=== PATIENT | female | born 1950 | race Caucasian/White ===

== ENCOUNTER → 2017-06-29 | Outpatient (CLI) | payer OTHER, MEDICARE ==
[~2017-06-29] MED LIST: ACT35 PO; AMTUNK; PRAV20TA PO
--- NOTE | 2017-06-30 08:10 | MAMMOGRAPHY REPORT ---
BILATERAL DIGITAL SCREENING MAMMOGRAM TOMOSYNTHESIS WITH CAD: 06/29/2017 CLINICAL HISTORY: Routine screening. Patient has no complaints. TECHNIQUE: Breast tomosynthesis in addition to standard 2D mammography was performed. Current study was also evaluated with a Computer Aided Detection (CAD) system. COMPARISON: Comparison is made to exams dated: 06/26/2016 mammogram, 06/07/2015 mammogram, 06/05/2014 m ammogram, 05/17/2013 mammogram, 04/04/2012 mammogram, and 04/01/2011 mammogram - [facility] nter. BREAST COMPOSITION: There are scattered areas of fibroglandular density in both breasts. FINDINGS: There is stable asymmetry in the superior right breast. No new suspicious mass, architectu ral distortion or cluster of microcalcifications is seen. IMPRESSION: ACR BI-RADS CATEGORY 1: NEGATIVE There is no mammographic evidence of malignancy. A 1 year screening mammogram is recommended. The pa tient will receive written notification of the results. Approximately 10% of breast cancers are not detected with mammography. A negative mammographic report should not delay biopsy if a clinically suggestive mass is present. Anaid Smith M.D. ay/:06/29/2017 15:52:07 [employer] Consultant: Liz AYALA(R)(M), [facility] letter sent: Normal 1/2 BI-RADS Code: ACR BI-RADS Category 1: Negative
== END | disposition home or self-care (01) ==
LOC: C.MAMM 09:56
PROVIDERS: ATTEND Family Medicine
DX: Z12.31 Encounter for screening mammogram for malignant neoplasm of breast (principal)

== ENCOUNTER 2020-07-12 08:42 | Inpatient (IN) ==
[2020-06-11 10:40] LABS: Basophils # (auto) 0.02 K/uL (0-0.2); Basophils % (auto) 0.4 %; Eosinophils # (auto) 0.07 K/uL (0-0.5); Eosinophils % (auto) 1.2 %; Hematocrit (blood only) 41.7 % (37-47); Hemoglobin 14.1 g/dL (12.0-16.0); Immature Granulocytes # (auto) 0.01 K/uL (0.00-0.02); Immature Granulocytes % (auto) 0.2 %; Lymphocytes % (auto) 17.6 %; Mean Corpuscular Hgb Conc 33.8 g/dL (32-36); Mean Corpuscular Volume 91.6 fL (80-100); Mean Platelet Volume 10.4 fL (7.4-10.4); Monocytes # (auto) 0.43 K/uL (0.11-0.59); Monocytes % (auto) 7.6 %; Neutrophils # (auto) 4.15 K/uL (1.4-6.5); Platelet Count 296 K/uL (130-400); RDW Coefficient of Variation 13.1 % (11.5-14.5); RDW Standard Deviation 43.7 fL (36.4-46.3); Red Blood Count 4.55 M/uL (4.2-5.4); White Blood Count 5.68 K/uL (4.8-10.8)
[2020-06-11 10:49] LABS: Partial Thromboplastin Time 27.5 Seconds (21.0-31.0); Prothrombin Time 10.6 Seconds (9.0-12.0)
[2020-06-11 11:05] LABS: Blood Urea Nitrogen 13 mg/dl (7-18); Calcium 9.5 mg/dl (8.5-10.1); Carbon Dioxide 26 mmol/L (21-32); Chloride 109 mmol/L (98-107); Est GFR (African American) 103.7; Est GFR (Non-African American) 89.4; Glucose 97 mg/dl (70-99); Sodium 141 mmol/L (136-145)
--- NOTE | 2020-07-03 10:11 | Anesthesiology Consultation ---
Date of Service July 03, 2020 Assessment & Plan (1) Encounter for pre-operative examination: Chart Review Chart Review: Acceptable Risk for Surgery (pending preop Covid testing results ) and Patient NOT seen in Pre Admission Testing Per nursing assessment 07/03/2020, patient denies any recent travel. No known Covid positive contacts or Covid related symptoms. Scheduled for preop Covid testing 07/08/20. History Surgery Operation Date: 07/12/20 07:00 Proposed Procedures p Left Total Shoulder Arthroplasty - Robert Forrester DO Height/Weight Height: 5 ft Weight: 53.524 kg Allergies Allergy/AdvReac Type Severity Reaction Status Date / Time cortisone Allergy Mild ONLY 1 Verified 07/03/20 09:07 TIME IN HX, RASH & FLUSHED - SEE NOTES BELOW Medications Home Medications Medication Instructions Recorded Confirmed Last Taken celecoxib 200 mg capsule 100 mg PO BID 08/29/19 07/03/20 Unknown Allergy Pill 1 dose PO UD PRN 12/04/19 07/03/20 Unknown calcium carbonate-vitamin D3 1 tab PO DAILY 12/04/19 07/03/20 Unknown [Calcium 500 + D] multivitamin 1 cap PO DAILY 12/04/19 07/03/20 Unknown omeprazole 20 mg PO UD PRN 12/04/19 07/03/20 Unknown rosuvastatin 10 mg PO QPM 12/04/19 07/03/20 Unknown Past Medical History Medical History Degenerative disc disease NECK, MILD LIMITED ROM Disease FUCHS DISEASE Hiatal hernia SMALL, DX YRS AGO, INFREQUENT FLARE UP, NO CURRENT PROBLEM High cholesterol PONV (postoperative nausea and vomiting) Past Surgical History Surgical History History of arthroscopy of left knee History of colonoscopy History of gynecologic surgery MULTIPLE FOR ENDOMETRIOSIS (AGE 21'S) History of lumpectomy of right breast BENIGN History of urologic surgery BLADDER SLING, OCT 2019 Social History Smoking Status: Never smoker Do You Dip or Chew Tobacco: No Hx Alcohol Use: No Hx Substance Use: No substance use type: does not use Testing Laboratory Results 06/11/20 09:10 06/11/20 09:10 PT 10.6 Seconds (9.0-12.0) 06/11/20 09:10 INR 1.0 (0.9-1.1) 06/11/20 09:10 APTT 27.5 Seconds (21.0-31.0) 06/11/20 09:10 Blood Type O Positive 06/11/20 09:10 Antibody Screen NEGATIVE 06/11/20 09:10 Electrocardiogram Date: 12/11/19 Findings: + NSR @ (70) and + no change from (December 25, 2015) Chest X-Ray Date: 12/11/19 Findings: + NAD No acute cardiopulmonary abnormality. 8 mm nodular focus overlying the posterior medial aspect of the right sixth rib is likely secondary to summation density. A pulmonary nodule could appear similarly. (PCP sent copy of CXR to follow up on in December 2019) Stress Test Date: 08/09/18 Type: exercise (ECHO ) Resting EF: 55-60% Resting LV Function: normal Resting RWMA: + none Valvular Disease: no significant valvular disease Nonischemic exercise stress ECHO. MPHR= 100%. 10.1 METS achieved. No arrhythmias. Normal baseline EKG. Normal HR and BP response to exercise. Resting ECHO- mild cLVH. Grade I diastolic dysfunction.
--- NOTE | 2020-07-10 20:30 | History & Physical Report ---
Date of Service July 10, 2020 Assessment & Plan (1) Osteoarthritis, shoulder: We will proceed with a left total shoulder arthroplasty. Postoperatively she will be placed in a sling and kept overnight in the hospital for postoperative medical management. She plans to use [facility] upon discharge. Present on Admission?: Yes History of Present Illness Chief Complaint: Primary osteoarthritis of the left shoulder Primary Care Provider: Maggy Acevedo DO Juany is a pleasant 69-year-old female who is been dealing with chronic increasing left shoulder pain. X-rays and clinical examination have been diagnostic for advanced osteoarthritis of the left shoulder. After failing conservative treatment, she has elected to proceed with a left total shoulder arthroplasty. Allergies Allergy/AdvReac Type Severity Reaction Status Date / Time cortisone Allergy Mild ONLY 1 Verified 07/03/20 09:07 TIME IN HX, RASH & FLUSHED - SEE NOTES BELOW Home Medications Home Medications Medication Instructions Recorded Confirmed Type celecoxib 200 mg capsule 100 mg PO BID 08/29/19 07/03/20 History Allergy Pill 1 dose PO UD PRN 12/04/19 07/03/20 History calcium carbonate-vitamin D3 1 tab PO DAILY 12/04/19 07/03/20 History [Calcium 500 + D] multivitamin 1 cap PO DAILY 12/04/19 07/03/20 History omeprazole 20 mg PO UD PRN 12/04/19 07/03/20 History rosuvastatin 10 mg PO QPM 12/04/19 07/03/20 History Past Med/Surg History Medical History Degenerative disc disease NECK, MILD LIMITED ROM Disease FUCHS DISEASE Hiatal hernia SMALL, DX YRS AGO, INFREQUENT FLARE UP, NO CURRENT PROBLEM High cholesterol Surgical History History of arthroscopy of left knee History of colonoscopy History of gynecologic surgery MULTIPLE FOR ENDOMETRIOSIS (AGE 21'S) History of lumpectomy of right breast BENIGN History of urologic surgery BLADDER SLING, OCT 2019 PONV (postoperative nausea and vomiting) Social History Smoking Status: Never smoker Second Hand Exposure: No; Hx Alcohol Use: No Hx Substance Use: No Preferred Language: Kyrgyz Communication Ability: Effective Director Of Scientific Research Required: No Beliefs That Will Affect Care: None Current Living Situation: Spouse Feels Safe at Home: Yes Assistive Devices: Glasses Review of Systems Review of Systems: All systems reviewed & are unremarkable except as noted in HPI & below Physical Exam Constitutional: WD/WN, vitals as above Eyes: PERRL, conjunctivae normal, anicteric sclerae ENMT: external ear and nose normal, oropharynx normal Neck: trachea midline, no thyromegaly Respiratory: normal respiratory effort Cardiovascular: RRR, no murmur, no edema Gastrointestinal (Abdomen): normal bowel sounds, soft, nontender, no hepatosplenomegaly Musculoskeletal: Physical examination of the left shoulder reveals decreased range of motion and crepitis throughout. There is good strength with full can testing and external rotation. There is tenderness palpation along the anterior glenohumeral joint line. The right upper extremity is neurovascularly intact. Psychiatric: A+Ox3, euthymic affect Results & Data Results & Data ([facility]) Diagnostic Findings Radiographs of the left shoulder show osteoarthritis of the glenohumeral joint. There is joint space narrowing, osteophyte formation, and [id number] articulation. PG Care Time/CCT Total # of Minutes Spent Total Time Spent with Patient: Total time spent is greater than 50% in coordination of care (as documented) at patient's floor/unit and/or counseling patient: Coding Level of Care Code None Diagnoses Osteoarthritis, shoulder M19.019
[~2020-07-12 08:42] MED LIST changes: +ACETAMINOPHEN 500 MG TAB PO SCH; -ACT35 PO; -AMTUNK; +BUPIVACAINE 0.5 % 5 MG/1 ML PF 10ML VIAL ONE; +CEFAZOLIN 1000MG 1,000 MG/7.5 ML SYR IV SCH; +FAMOTIDINE 20 MG TAB PO SCH; +GABAPENTIN 300 MG CAP PO SCH; +LR 15ML/HR IV SCH; +LR 60ML/HR IV SCH; -PRAV20TA PO; +ROPIVACAINE 0.5% HCL/PF 150 MG, BUPIVACAINE 0.5% MPF 30 ML, EPINEPHrine 30MG/30ML (OR U... INSTIL SCH; +TRANEXAMIC ACID 1,000 MG **IV Intra-op IV SCH; +TRANEXAMIC ACID 1,000 MG **IV Pre-op IV SCH; +dexAMETHasone 4 MG TAB PO SCH
[2020-07-12] MEDS ORDERED: ONDANSETRON INJ 2 MG/ML 2 ML VIAL ONE (09:40)
[2020-07-12] MEDS ORDERED: fentaNYL citrate 100 MCG/2 ML VIAL ONE (09:40)
[2020-07-12] MEDS ORDERED: ROCURONIUM BROMIDE 10 MG/ML 5 ML VIAL IV ONE (09:40)
[2020-07-12] MEDS ORDERED: LIDOCAINE HCL 2% 2 ML VIAL/AMP(20MG/ML) INFIL ONE (09:40)
[2020-07-12] MEDS ORDERED: MIDAZOLAM HCL 1 MG/ML 2ML VIAL ONE ×2 (09:40→09:43)
[2020-07-12] MEDS ORDERED: PROPOFOL IV EMULSION 10 MG/ML 20 ML VIAL IV ONE (09:40)
--- NOTE | 2020-07-12 10:42 | History & Physical Bridge Note ---
Date of Service July 12, 2020 History & Physical Bridge Note I have examined the patient, reviewed the History & Physical and in the interval since the performance of the History & Physical I have noted the following changes of clinical significance: no changes noted
[2020-07-12] MEDS ORDERED: ORTHO JOINT ANESTHETIC ONE (11:04)
[2020-07-12] MEDS ORDERED: Nursing to Pharmacy Communication SCH (11:15)
--- NOTE | 2020-07-12 13:25 | Operative Report ---
PG Post Operative Report Pre & Post Diagnosis Operation Date: 07/12/20 11:05 Pre-Op Diagnosis: LEFT TOTAL SHOULDER ARTHROPLASTY with tendinopathy of the long head of the biceps tendon Post-Op Diagnosis: LEFT TOTAL SHOULDER ARTHROPLASTY with tendinopathy of the long head of the biceps tendon I identified the patient and participated in the time-out.: Yes Procedure Operation Date: 07/12/20 11:05 Actual Procedures p Left Total Shoulder Arthroplasty with open biceps tenodesis as a distinct and separate procedure (modifier 59) (Left) - Robert Forrester DO Surgeon Robert Forrester DO Strategic Communications Specialist Robert Miranda PAC Estimated Blood Loss 100 Findings Consistent with Post-Op Diagnosis Specimens Left humeral head Complications none Disposition Disposition: Recovery Room Indications Juany is a pleasant 69-year-old female who presented my office with chronic i ncreasing left shoulder pain. X-rays and clinical examination were diagnostic for advanced osteoarthritis of the left shoulder. After failing conservative treatment, she elected proceed with a left total shoulder arthroplasty. Description of Procedure A CPT code modifier 59: The long head of the biceps tendon was enlarged and inflamed consistent with tendinopathy. A tenodesis was opted. This was a separate and distinct portion of the procedure. For these reasons, a CPT code modifier 59 will be added to this case. Implants used: I used a [employer] Comprehensive total shoulder arthroplasty system with a size 8 press fit micro humeral stem, a size 42 x 18 eccentric humeral head, and a size 2 glenoid with a trabecular metal peg. The glenoid was cemented in place with Palacos G cement. Elvi arrived at [facility] for the above procedure. She was seen in the preoperative holding area and the operative extremity was identified and signed. She was given a preoperative antibiotic, TXA, and an interscalene nerve block. She was taken back to the operating room, laid on table in supine position, and put under general anesthesia. She was then put into the beachchair position. The shoulder was then prepped and draped in sterile fashion. A timeout was done and the patient and the operative extremity was properly identified. A deltopectoral approach was used. Dissection was taken down through the fascia and the deltoid was retracted laterally and the conjoined tendon was retracted medially. The anterior shoulder was exposed. The biceps groove was opened up and the biceps tendon was examined extensively. The biceps tendon demonstrated enlargement and inflammatory changes consistent with longstanding inflammation in the context of osteoarthritis. The long head of the biceps tendon was then tenodesed to the upper border of the pectoralis major. This was a separate and distinct portion of the procedure. The subscapularis was then released off the lesser tuberosity with a centimeter of cuff tissue remaining. The inferior capsule was released and the humeral head was dislocated. The rotator cuff was inspected and intact. A canal finding reamer was sent down the center of the humeral canal. Sequential reaming up to a size 8 reamer was done. Offset reamer a proximal humeral resection guide was placed. The proximal humerus was resected at 135 of inclination and 30 of retroversion. Inferior osteophytes were then removed and the glenoid was exposed. Time was spent doing an appropriate labral release. The glenoid measured to be a size 2. A [employer] Signature One guide was then attached onto the anterior rim of the glenoid. A 3.2 mm Steinmann pin was then placed in the total shoulder arthroplasty hole. The glenoid was then reamed with a propeller reamer. The central post cutter was then used to prepare for the central boss. The cannulated peripheral peg drill guide was then placed and 3 peg holes were drilled. The final size 2 glenoid was then cemented in place with Palacos G cement. Surrounding soft tissues were then injected with 100 cc of an orthopedic pain control cocktail. Once cement had dried the proximal humerus was once again exposed. Sequential broaching of the humerus up to a size 8 broach was done. Off that broach a size 42 x 18 eccentric humeral head was trialed. The shoulder was then reduced, brought through a full range of motion, and felt to be stable. The shoulder was then dislocated and the broach was removed. The final size 8 micro humeral stem implant was then impacted into place. A size 42 x 18 eccentric humeral head was then impacted onto the humeral stem. The shoulder was then reduced and once again brought through a full range of motion and felt to be stable. The subscapularis was then tenodesed back to the lesser tuberosity with transosseous FiberWire sutures and side to side sutures with the arm in 45 of external rotation. 2 sutures were placed in the lateral rotator interval. A dilute betadyne lavage was then done for 3 minutes. The joint was then irrigated with normal saline solution. Hemostasis was obtained. The interval was closed with 2-0 Vicryl suture. The skin was closed with 2-0 Vicryl and abdon. A Silverlon dressing was placed and the arm was rested in a regular arm sling. She was then extubated and transferred to a hospital bed. She was taken to the postanesthesia care unit in stable condition. She tolerated the procedure well. Robert Miranda PA-C, was present for the entire procedure. He was critical for patient positioning, prepping, draping, retraction exposure, wound closure and application of sterile dressing. I attest to the content of the Intraoperative Record and any orders documented therein. Any exceptions are noted below.
--- NOTE | 2020-07-12 14:14 | XRay Report ---
XR shoulder LT min 2V routine CLINICAL HISTORY: Post shoulder surgery COMPARISON: CT scan dated 12/11/2019 DISCUSSION: There are postsurgical changes of a total left shoulder arthroplasty. There is no disloca tion. There are overlying skin abdon. There is gas present within the soft tissues consistent with recent surgery. Increased markings the left lung base are likely atelectatic IMPRESSION: Postsurgical changes of a total left shoulder arthroplasty. No evidence of dislocation. ACT 112: Negative or not required by law. Electronically signed by: Solo Sepulveda M.D. 07/12/2020 2:13 PM
--- NOTE | 2020-07-12 14:26 | Anesthesiology Progress Note ---
Date of Service July 12, 2020 Anesthesia Post Procedure Vital Signs Vital Signs: Temp Pulse Pulse Resp BP BP Pulse Ox 07/12/20 14:23 36.5 C 66 18 118/74 95 07/12/20 14:15 36.5 C 65 15 122/74 96 07/12/20 14:05 69 18 124/80 100 07/12/20 13:55 67 18 134/84 100 07/12/20 13:45 36.1 C L 67 19 137/81 100 07/12/20 09:25 36.8 C 69 20 124/86 98 Transfer of Care Handoff Completed per policy Notes Mental Status: alert / awake / arousable and participated in evaluation Patient Amnestic to Procedure: Yes Nausea / Vomiting: adequately controlled Pain: adequately controlled Airway Patency, RR, SpO2: stable & adequate BP & HR: stable & adequate Hydration State: stable & adequate Anesthetic Complications: no major complications apparent
[2020-07-12] MEDS ORDERED: OXYCODONE HCL IR 5 MG TAB (IMMEDIATE RELEASE) PO PRN (14:34)
[2020-07-12] MEDS ORDERED: bisacodyL 10 MG SUPP PR PRN (14:34)
[2020-07-12] MEDS ORDERED: NALOXONE HCL 0.4 MG/1 ML VIAL/CARP IV PRN (14:34)
[2020-07-12] MEDS ORDERED: MAGNESIUM HYDROXIDE SUSP 30 ML UDC PO PRN (14:34)
[2020-07-12] MEDS ORDERED: ONDANSETRON INJ 2 MG/ML 2 ML VIAL IV PRN (14:34)
[2020-07-12] MEDS ORDERED: METOCLOPRAMIDE HCL INJ 5 MG/ML 2 ML VIAL IV PRN (14:34)
[2020-07-12] MEDS ORDERED: HYDROmorphone INJ 0.5 MG/0.5 ML SYR IV PRN (14:34)
[2020-07-12] MEDS: SODIUM CHLORIDE 0.9% 1000ML 1,000 ML IV SCH (14:43)
[2020-07-12] MEDS ORDERED: PANTOprazole 40 MG TAB PO PRN (14:51)
[2020-07-12] MEDS ORDERED: KETOROLAC 30 MG/ML VIAL IV SCH (16:00)
[2020-07-12] MEDS: ACETAMINOPHEN 500 MG TAB PO SCH ×2 (16:36→22:52)
[2020-07-12] MEDS: KETOROLAC TROMETHAMINE 15 MG/ML VIAL IV SCH ×2 (16:36→22:52)
[2020-07-12] MEDS: CEFAZOLIN 2000MG 2,000 MG/15 ML SYR IV SCH (19:37)
[2020-07-12] MEDS ORDERED: SENNA 8.6 MG TAB PO SCH (21:00)
[2020-07-12] MEDS ORDERED: ROSUVASTATIN CALCIUM 10 MG TAB PO SCH (21:00)
[2020-07-12] MEDS: DOCUSATE SODIUM 100 MG CAP PO SCH (21:23)
[2020-07-13] MEDS: SODIUM CHLORIDE 0.9% 1000ML 1,000 ML IV SCH (00:13)
[2020-07-13] MEDS: CEFAZOLIN 2000MG 2,000 MG/15 ML SYR IV SCH (04:32)
[2020-07-13] MEDS: KETOROLAC TROMETHAMINE 15 MG/ML VIAL IV SCH ×2 (04:33→09:40)
[2020-07-13] MEDS: ACETAMINOPHEN 500 MG TAB PO SCH (05:53)
--- NOTE | 2020-07-13 07:12 | Orthopedic Progress Note ---
Date of Service July 13, 2020 Assessment & Plan (1) Status post replacement of left shoulder joint: Overall she is doing very well. She is not having any pain in the left shoulder. She will be seen by physical therapy this morning for ambulation and range of motion exercises. She can be discharged home later today. She will follow-up with orthopedics in 2 weeks. Present on Admission?: No Admission and Anticipated Discharge Date Admission Date: July 12, 2020 Stephanie Boles was seen and examined at bedside this morning. Overall she is doing very well. She is not having any pain in the left shoulder. She is happy with her progress and has no complaints. Physical Exam Musculoskeletal: On physical examination of the left shoulder, the dressing is clean and dry. She is wearing her sling as instructed. The nerve block is still working and she has minimal motion of her hand and still has some numbness and paresthesias. Results & Data ([facility]) Vital Signs (Past 12 Hours) Vital Signs Temp Pulse Resp BP Pulse Ox 07/13/20 04:33 36.5 C 68 14 106/68 95 07/12/20 23:48 36.4 C L 67 18 106/68 97 07/12/20 19:16 36.4 C L 69 18 121/81 97 Diagnostic Findings Postoperative x-rays of the left shoulder show the prosthesis to be in anatomic alignment without any evidence of fracture, dislocation, or loosening. PG Care Time/CCT Total # of Minutes Spent Total Time Spent with Patient: Total time spent is greater than 50% in coordination of care (as documented) at patient's floor/unit and/or counseling patient: Coding Level of Care Code None Diagnoses Status post replacement of left shoulder joint Z96.612
--- NOTE | 2020-07-13 07:14 | Discharge Summary ---
Date of Service July 13, 2020 Admission HPI Per Admitting Provider Juany is a pleasant 69-year-old female who is been dealing with chronic increasing left shoulder pain. X-rays and clinical examination have been diagnostic for advanced osteoarthritis of the left shoulder. After failing conservative treatment, she has elected to proceed with a left total shoulder arthroplasty. Principal Diagnosis Left shoulder replacement Discharge Data Allergies Allergy/AdvReac Type Severity Reaction Status Date / Time cortisone Allergy Mild ONLY 1 Verified 07/12/20 09:17 TIME IN HX, RASH & FLUSHED - SEE NOTES BELOW Consultations 07/12/20 14:34 Consult Case Management - Discharge Planning Routine Procedures Performed Operation Date: 07/12/20 11:05 Actual Procedures p Left Total Shoulder Arthroplasty(Left) - Robert Forrester DO Ordered Studies 07/12/20 05:00 US - OR guided needle placemen Routine Hospital Course (1) Status post replacement of left shoulder joint: On July 12, 2020 Elvi underwent a left total shoulder arthroplasty without complication. She had a general anesthetic and a left interscalene nerve block. Postoperatively she was placed in a sling and transferred to the general orthopedic floors. Her hospital course was uneventful. On postop day #1 her H&H was stable and her pain was well controlled. She was able to participate well with physical therapy doing ambulation and range of motion exercises. She was then discharged home. She will follow-up with orthopedics in 2 weeks. Total Time Total Time Spent Total Time Spent (In Minutes): 20 Discharge Plan Discharge Items Patient Disposition: Home - Home Health Services Reason For Visit: LEFT TOTAL SHOULDER ARTHROPLASTY Discharge Diagnosis: Left shoulder replacement Activity: As commented below Non-emergency contact: Surgeon Call non-emergency contact if: your wound has increased redness and your wound has increased drainage Follow-up/Referrals: Maggy Acevedo DO [Primary Care Provider] - Diet: Regular Addtl Attending Provider Instructions: Activity and Therapy Recommendations: * If you are using [facility] then therapy will be provided at your home until they feel you have accomplished all of your goals. * If you are using [facility] then Physical Therapy will be provided until they feel you are ready to start Outpatient Physical Therapy. * If you are not using home therapy then Outpatient Physical Therapy should start about 3-5 days from your day of surgery. Therapy will last about 8-12 weeks * Wear your sling for 3 weeks, unless otherwise instructed. You may remove your sling to shower and to dress, but otherwise, you should be in your sling at all times, including while sleeping * The shoulder replacement is very stable and you can use your hand while in the sling * You were shown a series of exercises in the hospital. Do these exercises daily including the exercises you were shown in physical therapy. Medications: * Narcotic You will likely be sent home from the hospital with a prescription for the narcotic pain medication that worked best throughout your stay. * Other medications may be prescribed for specific circumstances. If you have any questions, please call the office at . * Resume previous home medications unless otherwise instructed Dressing Care: Leave the Silverlon dressing in place for 7 days. After 7 days you may remove the dressing. If the incision is not draining then you may leave the abdon open to air. If there is a little bit of drainage or if the abdon are getting stuck on your clothing then cover the incision with a dry dressing. The abdon will be removed at your 2 week follow-up appointment. Showering: You may shower with the Silverlon dressing in place. Do not let the shower spray hit the dressing directly. Pat the Silverlon dressing dry. If the dressing becomes wet underneath, then simply remove the dressing. Keep the incision dry until you are 7 days out from the day of surgery. After 7 days you may remove the Silverlon dressing and shower with the abdon exposed. Let soapy water run over the abdon and pat them dry. Do not scrub or soak the incision. Things To Watch For: * Drainage from the incision site that occurs more than one week after your surgery. * Increased redness at the incision site. * Fever above 102 degrees Fahrenheit. * Unusual chest pain or shortness of breath. * Call [facility] at with any of the above problems Follow-Up Visit: Follow-up with Dr. Forrester's PA (Robert Miranda) 2-3 weeks after your day of surgery. He will remove your abdon and answer any questions. If you have any additional questions or concerns, Dr Forrester is usually in the office at the same time and will be available An appointment was probably scheduled when you signed-up for surgery in the office. If you have any questions call More detailed instructions as well as Frequently Asked Questions were provided in a folder by our office when you signed-up for surgery. Please review these instructions when you get home. If you have any further questions or concerns, please feel free to call the office at [phone] Pending Studies at Discharge: No Stand-Alone Forms: My [facility] [employer], Smoking Cessation Medications and DC Order Prescriptions: New tramadol 50 mg tablet 50 mg PO Q6H PRN (Reason: pain) Qty: 30 RF: 0 Continued celecoxib [Celebrex] 200 mg capsule 100 mg PO BID RF: 0 rosuvastatin 10 mg Tablet 10 mg PO QPM RF: 0 Allergy Pill 1 dose PO UD PRN (Reason: Nasal Congestion) RF: 0 multivitamin Capsule 1 cap PO DAILY RF: 0 calcium carbonate-vitamin D3 [Calcium 500 + D] 500 mg(1,250mg) -400 unit Tablet 1 tab PO DAILY RF: 0 omeprazole 20 mg Capsule,Delayed Release(Dr/Ec) 20 mg PO UD PRN (Reason: HIATAL HERNIA) RF: 0 glucosamine-chondroitin [Osteo Bi-Flex] 250-200 mg Tablet 1 tab PO HS RF: 0 Tylenol Arthritis Pain 500 mg PO Q6 PRN (Reason: Pain) RF: 0 Discharge Orders: Discharge Order (Routine); Ordered 07/13/20 Ordered By: Robert Forrester Admission Data Admit Date/Time: 07/12/20 13:44 Attending Provider: Robert Forrester Admit Provider: Robert Forrester Primary Care Provider: Maggy Acevedo Coding Level of Care Code D/C Day Management <30 mins Diagnoses Status post replacement of left shoulder joint Z96.612
[2020-07-13 07:38] LABS: Basophils # (auto) 0.01 K/uL (0-0.2); Basophils % (auto) 0.1 %; Hematocrit (blood only) 37.9 % (37-47); Hemoglobin 12.5 g/dL (12.0-16.0); Immature Granulocytes # (auto) 0.03 K/uL (0.00-0.02); Immature Granulocytes % (auto) 0.2 %; Lymphocytes # (auto) 0.83 K/uL (1.2-3.4); Lymphocytes % (auto) 5.4 %; Mean Corpuscular Hemoglobin 29.8 pg (25-34); Mean Corpuscular Volume 90.5 fL (80-100); Mean Platelet Volume 9.8 fL (7.4-10.4); Monocytes # (auto) 0.85 K/uL (0.11-0.59); Monocytes % (auto) 5.5 %; Neutrophils # (auto) 13.71 K/uL (1.4-6.5); Neutrophils % (auto) 88.8 %; Platelet Count 298 K/uL (130-400); RDW Standard Deviation 43.1 fL (36.4-46.3); Red Blood Count 4.19 M/uL (4.2-5.4); White Blood Count 15.43 K/uL (4.8-10.8)
[2020-07-13] MEDS ORDERED: dexAMETHasone 4 MG TAB PO SCH (08:00)
[2020-07-13 08:07] LABS: Calcium 9.2 mg/dl (8.5-10.1); Creatinine Clr Calc Pharmacy 56.1 ml/min; Est GFR (African American) 103.7; Est GFR (Non-African American) 89.4
[2020-07-13] MEDS ORDERED: MULTIVITAMIN TAB PO SCH (09:00)
[2020-07-13] MEDS: DOCUSATE SODIUM 100 MG CAP PO SCH (09:39)
== END 2020-07-13 10:54 | disposition home or self-care (01) | DRG 483 ==
LOC: ASU 08:42 → 3E 13:44